=== PATIENT | female | born 2000 | race Two or more races ===

== ENCOUNTER 2025-06-21 13:39 | Emergency (ER) | payer OTHER, BC ==
[~2025-06-21] VITALS: Ht 154.9 cm; Wt 113.4 kg
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
[2025-06-21] MEDS ORDERED: METH-1181 PO (15:20)
[2025-06-21] MEDS ORDERED: IBUP-1455 PO (15:20)
[2025-06-21 16:11] VITALS: BP 138/74; PULSE 70; RESP 16; TEMP 98.3; O2SAT 96
== END 2025-06-21 18:18 | disposition home or self-care (01) ==
LOC: ER 13:39
DX: Z04.1 Encounter for examination and observation following transport accident (principal); V43.52XA Car driver injured in collision with other type car in traffic accident, initial encounter; Y92.410 Unspecified street and highway as the place of occurrence of the external cause; Y93.89 Activity, other specified; Y99.8 Other external cause status
CPT/HCPCS: 72100